=== PATIENT | male | born 1955 | race Caucasian/White ===

== ENCOUNTER → 2017-08-20 | Outpatient (CLI) | payer BC ==
--- NOTE | 2017-08-20 16:36 | DIAGNOSTIC IMAGING REPORT ---
R KNEE 1 OR 2 VIEWS ROUTINE CLINICAL HISTORY: 61 years-old Male presenting with UNSPECIFIED INTERNAL DERANGEMENT OF R KNEE. TECHNIQUE: Frontal and lateral views of the right knee were obtained. COMPARISON: 12/15/2015. FINDINGS: Tricompartmental degenerative changes worst in the medial compartment. Osteophytosis noted throughout. In the medial compartment there is also joint space loss, subchondral sclerosis, and cystic change. Prominent fabella. Additional calcification may relate to a loose body in a popliteal cyst or other soft tissue calcification. No acute fracture or acute malalignment. Joint effusion noted. IMPRESSION: Tricompartmental degenerative changes worse in the medial compartment. Electronically signed by: Cheko Velasco M.D. 08/20/2017 4:34 PM Dictated Date/Time: 08/20/2017 4:33 PM
== END | disposition home or self-care (01) ==
LOC: C.RAD1850 16:06
PROVIDERS: ATTEND Student in an Organized Health Care Education/Training Program
DX: M17.11 Unilateral primary osteoarthritis, right knee (principal); M23.91 Unspecified internal derangement of right knee

== ENCOUNTER → 2017-10-29 | Outpatient (CLI) | payer BC | END | disposition home or self-care (01) | LOC: C.RDSM 20:21 | PROVIDERS: ATTEND Physical Medicine & Rehabilitation Sports Medicine | DX: M25.561 Pain in right knee (principal); M25.562 Pain in left knee ==

== ENCOUNTER → 2018-04-08 | Outpatient (CLI) | payer OTHER ==
[~2018-04-08] MED LIST: ALLO300T2 PO; ASPI-232 PO; OMEP20CA9 PO; OXYC-57 PO; WARF2TAB PO
== END | disposition home or self-care (01) ==
LOC: C.RDSM 13:20
PROVIDERS: ATTEND Physical Medicine & Rehabilitation Sports Medicine
DX: M17.11 Unilateral primary osteoarthritis, right knee (principal)